=== PATIENT | female | born 1990 | race Caucasian/White ===

== ENCOUNTER 2023-01-10 11:15 | Outpatient (CLI) | payer OTHER, SELFPAY ==
[2023-01-10 11:28] LABS: Basophils Absolute Auto 0.06 K/mm3 (0.00-0.10); Basophils Percent Auto 0.7 % (0.0-1.0); Eosinophils Absolute Auto 0.26 K/mm3 (0.02-0.50); Hematocrit 40.3 % (35.0-49.0); Hemoglobin 12.7 g/dL (12.0-15.0); Immature Granulocyte Absolute 0.02 K/mm3 (0.00-0.00); Immature Granulocyte Percent A 0.2 % (0.0-0.0); Lymphocytes Absolute Auto 2.11 K/mm3 (1.10-4.50); Lymphocytes Percent Auto 24.5 % (18.0-42.0); Mean Corpuscular HGB Conc 31.5 g/dL (32.0-36.0); Mean Corpuscular Hemoglobin 26.7 pg (27.0-31.0); Mean Corpuscular Volume 84.7 fL (78.0-102.0); Monocytes Absolute Auto 0.56 K/mm3 (0.10-0.90); Monocytes Percent Auto 6.5 % (2.0-11.0); Neutrophils Absolute Auto 5.6 K/mm3 (1.7-7.2); Neutrophils Percent Auto 65.1 % (50.0-70.0); Platelet Count Result 313 K/mm3 (150-420); Red Blood Count 4.76 M/mm3 (4.20-5.40); Red Cell Distribution Width 13.5 % (11.6-14.4); White Blood Count 8.6 K/mm3 (4.8-10.8)
[2023-01-10 12:33] LABS: Alanine Aminotransferase 44 U/L (14-59); Albumin Level 3.6 g/dL (3.4-5.0); Alkaline Phosphatase 74 U/L (46-116); Anion Gap 4 mmol/L (8-16); Aspartate Amino Transferase 20 U/L (15-37); Bilirubin,Total 0.5 mg/dL (0.00-1.00); Blood Urea Nitrogen 5 mg/dL (7-18); Calcium 8.9 mg/dL (8.5-10.1); Carbon Dioxide 31 mmol/L (21-32); Chloride 103 mmol/L (98-108); Estimated Glomerular Filt Rate > 60; Glucose 100 mg/dL (70-99); Osmolality Calculated 283 mOsm/kg (285-295); Potassium 4.2 mmol/L (3.5-5.1); Sodium 138 mmol/L (136-145); Total Protein 6.9 g/dL (6.4-8.2)
[2023-01-10 12:34] LABS: Thyroid Stimulating Hormone Reflex 1.05 u/IU/mL (0.36-3.74)
== END 2023-01-10 11:16 | disposition home or self-care (01) ==
PROVIDERS: PCP Family Medicine; Visit Provider Family Medicine
DX: E11.9 Type 2 diabetes mellitus without complications (principal); R40.0 Somnolence; J32.9 Chronic sinusitis, unspecified
CPT/HCPCS: 36415; 80053; 84443; 85025

== ENCOUNTER 2023-01-14 09:11 | Outpatient (CLI) | payer OTHER, SELFPAY ==
--- NOTE | ~2023-01-14 | CT_ITS ---
EXAMINATION: CT sinus wo con DATE: 01/14/2023 09:29 INDICATION: Chronic sinusitis. Nasal congestion. TECHNIQUE: Computed tomography (CT) of the paranasal sinuses was performed without contrast. Iterativ e reconstruction technique was employed. Exam dose: 257.43 mGy-cm total exam DLP. COMPARISON: None FINDINGS: There is leftward bowing of the nasal septum. The nasal turbinates are moderately prominent in size but symmetric. The ostiomeatal units are patent bilaterally. Minimal focal mucoperiosteal thickening along the anterolateral wall of right maxillary sinus and 6 m m mucus retention cyst or polyp along the anteromedial lower right maxillary sinus. Approximately 6.4 mm mucus retention cyst or polyp along the posterolateral right sphenoid sinus. The paranasal sinuses otherwise are normally developed and aerated. The mastoid air cells are well-developed and normally aerated bilaterally. Middle and inner ear apparatus are unremarkable bilaterally. IMPRESSION: Leftward bowing of nasal septum Patent ostiomeatal units Minimal focal mucoperiosteal thickening of right maxillary sinus and small mucous retention cyst or p olyp of right maxillary sinus and right sphenoid sinus Reviewed, dictated and finalized at [facility]. Reviewed, dictated and finalized at [facility]. IMPRESSION: Leftward bowing of nasal septum Patent ostiomeatal units Minimal focal mucoperiosteal thickening of right maxillary sinus and small muco us retention cyst or polyp of right maxillary sinus and right sphenoid sinus
== END 2023-01-14 09:12 | disposition home or self-care (01) ==
LOC: CHSIMG 09:12
PROVIDERS: PCP Family Medicine; Visit Provider Family Medicine
DX: J32.9 Chronic sinusitis, unspecified (principal); J34.2 Deviated nasal septum
CPT/HCPCS: 70486

== ENCOUNTER 2023-01-15 09:49 | Outpatient (RCR) | payer OTHER, SELFPAY ==
--- NOTE | 2023-01-15 10:53 | OPREHPOC ---
Outpatient Therapy Plan of Care This is a Multidisciplinary Plan of Care that may contain components documented by all disciplines (PT, OT, and ST.) PT Problem 1 PT Problem #1 Knowledge Deficit PT Goal 1 Goal 1. independent and compliant with HEP Target Visit 4 PT Problem 2 PT Problem #2 Pain PT Goal 1 Goal 1. decrease pain at worst to 2/10 or less in the lower back Target Visit 9 PT Problem 3 PT Problem #3 Impaired Strength PT Goal 1 Goal 1. improve bilateral hip strength to 4+/5 or better 2. improve core strength to 4/5 or better holding PPT until hips cross 25 degrees hip flexion to table. Target Visit 9 PT Problem 4 PT Problem #4 Impaired Functional Mobil PT Goal 1 Goal 1. patient to perform exercises for 30 minutes without rest 2. oswestry to display less than 10% functional deficits 3. patient to squat and lift 20lbs from floor to waist 10 times with safe mechanics Target Visit 9
--- NOTE | 2023-01-15 10:53 | PTOPEVAL1 ---
Assessment and note entered by JT File, PT Evaluation Information Assessment Status Evaluation Diagnosis dorsalgia Onset 10/30/22 Subjective Information patient reports she has been having pain in the lower back for about 2 months. she reports she began to notice that bending, squatting, and being active began to cause pain and burning in the lower back. the pain is relieved with sitting/ resting, and performing lumbar extension while sitting. 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 she reports she has had no imaging of the lumbar spine. she reports she does not get any symptoms into the LE's. she reports she has had no recent changes in her health or activity. she reports she was given no prescription meds for this pain. Reported Pain Level Pain Score 2: Self Report Assessment PT Clinical Summary mrs. leonard is a 32 yo woman who presents to skilled PT services for evaluation and treatment of lower back pain. she presents this date with signs and symptoms of lumbar instability from poor core strength/stability. she presents with core weakness, bilateral hip weakness, and deficits in functional activities impacting her quality of life. she would benefit from continued skilled PT services to address her objective/functional deficits and progress towards return to her prior level functional activity performance/quality of life. Plan of Care Interventions Electrical Stimulation,Hot Pack/Cold Pack,Manual Therapy,Neuro Re-education,Patient/Caregiver Educati,Therapeutic Activities,Therapeutic Exercise PT Services Indicated Yes Treatment Frequency and 3x weekly for 9 visits Duration These treatments will address the objective and functional deficits as defined above. The patient will be advanced safely and appropriately in order for the patient to progress towards his/her prior level of function. Additional exercises will be introduced and as well as a comprehensive home exercise program upon discharge, if needed, ?to ensure carryover of functional gains achieved in the clinic. This treatment plan has been reviewed and agreement upon by the patient.
--- NOTE | 2023-02-27 14:09 | OPREHPOC ---
Outpatient Therapy Plan of Care This is a Multidisciplinary Plan of Care that may contain components documented by all disciplines (PT, OT, and ST.) PT Problem 1 PT Problem #1 Knowledge Deficit PT Goal 1 Goal 1. independent and compliant with HEP Target Visit 4 Progress Met PT Problem 2 PT Problem #2 Pain PT Goal 1 Goal 1. decrease pain at worst to 2/10 or less in the lower back Target Visit 9 Progress Not Met PT Problem 3 PT Problem #3 Impaired Strength PT Goal 1 Goal 1. improve bilateral hip strength to 4+/5 or better 2. improve core strength to 4/5 or better holding PPT until hips cross 25 degrees hip flexion to table. Target Visit 9 Progress Met PT Problem 4 PT Problem #4 Impaired Functional Mobil PT Goal 1 Goal 1. patient to perform exercises for 30 minutes without rest. met 2. oswestry to display less than 10% functional deficits. not met 3. patient to squat and lift 20lbs from floor to waist 10 times with safe mechanics. met Target Visit 9 Progress Partially Met
--- NOTE | 2023-02-27 14:10 | PTOPDC ---
Assessment and note entered by JT File, PT Evaluation Information Assessment Status Discharge Diagnosis dorsalgia Onset 10/30/22 Subjective Information patient reports she is better overall. she reports she still has difficulty with staying in a squatted position ie. to change the litter box, but doing dishes and other house chores are a lot easier. Reported Pain Level Pain Score 2: Self Report Assessment PT Clinical Summary mrs. leonard presents to skilled PT for her 9th skilled PT visit. she presents with low pain, improve hp strength, improved core strength, and achievement of all goals except highest pain score and oswestry score. due to her progress towards goals and independence with HEP, she is ready to DC therapy today. she will continue her HEP independent at home. Plan of Care PT Services Indicated Yes
== END 2023-02-27 15:41 | disposition home or self-care (01) ==
LOC: CHSPT 09:49
PROVIDERS: PCP Family Medicine; Visit Provider Family Medicine
DX: M54.9 Dorsalgia, unspecified (principal)
CPT/HCPCS: 97014; 97110; 97112; 97150; 97161; G0283

== ENCOUNTER 2023-12-26 11:49 | Outpatient (CLI) | payer OTHER, SELFPAY ==
[2023-12-27 22:03] LABS: Alternaria alternata IgE <0.10 kU/L; Alternaria alternata IgE Class 0; Aspergillus fumigatus IgE <0.10 kU/L; Bermuda Grass (G2) IgE <0.10 kU/L; Bermuda Grass (G2) IgE Class 0; Cat Dander IgE 0.15 kU/L; Cat Dander IgE Class 0/1; Cladosporium herbarum IgE <0.10 kU/L; Cladosporium herbarum IgE Clas 0; Cockroach IgE <0.10 kU/L; Cockroach IgE Clas 0; Common Ragweed IgE Class 0; Cottonwood IgE <0.10 kU/L; Dermatophagoides Farinae Class 3; Dermatophagoides Pterony Class 3; Dermatophagoides Pteronyssinus 4.07 kU/L; Dog Dander IgE 0.11 kU/L; Elm (T8) IgE <0.10 kU/L; Elm (T8) IgE Class 0; Hickory/Pecan IgE <0.10 kU/L; Hickory/Pecan IgE Class 0; Immunoglobulin E 72 kU/L (<OR=114); Maple Box Elder IgE Class 0; Mountain Cedar IgE <0.10 kU/L; Mountain Cedar IgE Class 0; Mouse Urine Proteins IgE <0.10 kU/L; Mouse Urine Proteins IgE Class 0; Oak IgE <0.10 kU/L; Peniciliium notatum class 0; Penicillium notatum (M1) IgE <0.10 kU/L; Rough Marsh <0.10 kU/L; Rough Marsh Elder Class 0; Rough Pigweed (W14) IgE <0.10 kU/L; Rough Pigweed (W14) IgE Class 0; Russian Thistle <0.10 kU/L; Sycamore IgE <0.10 kU/L; Sycamore IgE Class 0; Timothy Grass IgE <0.10 kU/L; Timothy Grass IgE Class 0; Walnut Tree IgE <0.10 kU/L; Walnut Tree IgE Class 0; White Ash IgE Class 0; White Mulberry IgE <0.10 kU/L; White Mulberry IgE Class 0
== END 2023-12-26 11:50 | disposition home or self-care (01) ==
LOC: CHSLAB 11:53
PROVIDERS: PCP Family Medicine
DX: R09.81 Nasal congestion (principal); J34.89 Other specified disorders of nose and nasal sinuses
CPT/HCPCS: 36415; 82785; 86003; 86008

== ENCOUNTER 2024-02-21 10:39 | Outpatient (CLI) | payer OTHER, SELFPAY ==
[2024-02-21 10:57] LABS: Basophils Absolute Auto 0.08 K/mm3 (0.00-0.10); Basophils Percent Auto 0.9 % (0.0-1.0); Eosinophils Percent Auto 2.3 % (1.0-6.0); Hematocrit 37.9 % (35.0-49.0); Hemoglobin 12.6 g/dL (12.0-15.0); Immature Granulocyte Absolute 0.05 K/mm3 (0.00-0.00); Immature Granulocyte Percent A 0.6 % (0.0-0.0); Lymphocytes Absolute Auto 2.87 K/mm3 (1.10-4.50); Lymphocytes Percent Auto 33.2 % (18.0-42.0); Mean Corpuscular HGB Conc 33.2 g/dL (32-36); Mean Corpuscular Volume 81.3 fL (78.0-102.0); Mean Platelet Volume 10.2 fl (9.2-11.8); Monocytes Absolute Auto 0.66 K/mm3 (0.10-0.90); Monocytes Percent Auto 7.6 % (2.0-11.0); Neutrophils Absolute Auto 4.79 K/mm3 (1.70-7.20); Neutrophils Percent Auto 55.4 % (50.0-70.0); Platelet Count Result 284 K/mm3 (150-420); Red Blood Count 4.66 M/mm3 (4.20-5.40); Red Cell Distribution Width 13.6 % (11.6-14.4); White Blood Count 8.7 K/mm3 (4.8-10.8)
[2024-02-21 11:54] LABS: Alanine Aminotransferase 33 U/L (14-59); Albumin Level 3.6 g/dL (3.4-5.0); Alkaline Phosphatase 77 U/L (46-116); Anion Gap 9 mmol/L (4-12); Aspartate Amino Transferase 17 U/L (15-37); Bilirubin,Total 0.6 mg/dL (0.00-1.00); Blood Urea Nitrogen 10 mg/dL (7-18); CRP 0.9 mg/dL (0.0-0.9); Calcium 8.9 mg/dL (8.5-10.1); Carbon Dioxide 26 mmol/L (21-32); Chloride 105 mmol/L (98-108); Estimated Glomerular Filt Rate > 60; Glucose 90 mg/dL (70-99); Lipase 31 U/L (16-77); Osmolality Calculated 289 mOsm/kg (285-295); Potassium 4.2 mmol/L (3.5-5.1); Sodium 140 mmol/L (136-145); Total Protein 6.7 g/dL (6.4-8.2)
[2024-02-25 17:58] LABS: H pylori, Urea Breath NOT DETECTED (NOT DETECTED)
== END 2024-02-21 10:40 | disposition home or self-care (01) ==
LOC: CHSLAB 10:40
PROVIDERS: PCP Family Medicine; Visit Provider Family Medicine
DX: R10.9 Unspecified abdominal pain (principal)
CPT/HCPCS: 36415; 80053; 83013; 83690; 85025; 86140

== ENCOUNTER 2024-03-02 08:14 | Outpatient (CLI) | payer OTHER, SELFPAY ==
--- NOTE | ~2024-03-02 | US_ITS ---
EXAMINATION: US abdomen limited DATE: 03/02/2024 08:30 INDICATION: Right upper quadrant abdominal pain TECHNIQUE: Multiple grayscale and Doppler ultrasound images of the abdomen were obtained. COMPARISON: None FINDINGS: The pancreatic head and body are normal in appearance. The pancreatic tail is not visualized. Liver has normal contour, with a smooth surface. There is increased parenchymal echogenicity and coarsened echotexture consistent with diffuse hepatic steatosis. No liver lesion identified. No intrahepatic b iliary duct dilation suspected. Portal venous flow was seen in the hepatopetal, normal direction and has normal Doppler waveform. The gallbladder is normal in appearance. There is no cholelithiasis. Th e common bile duct measures 4 mm, which is normal. Sonographic Rivera sign was reported as negative b y the regulatory law specialist. Visualized portion of the right kidney demonstrates normal contour and echogenicit y with no hydronephrosis. IMPRESSION: 1. Normal right upper quadrant ultrasound. Reviewed, dictated and finalized at location [facility]. OM LINER
== END 2024-03-02 08:15 | disposition home or self-care (01) ==
LOC: CHSIMG 08:15
PROVIDERS: PCP Family Medicine; Visit Provider Family Medicine
DX: R10.11 Right upper quadrant pain (principal)
CPT/HCPCS: 76705